=== PATIENT | male | born 1935 | race Caucasian/White ===

== ENCOUNTER 2019-12-07 18:08 | Inpatient (IN) | payer MEDICARE ==
[~2019-12-07] VITALS: Ht 170.2 cm; Wt 79.4 kg
[2019-12-07] MEDS ORDERED: MORPHINE SULFATE 4 MG/ML CPJ (NOT FOR IM USE) IV STA (19:08)
[2019-12-07] MEDS ORDERED: SODIUM CHLORIDE 0.9% 1,000 ML IV ONE (19:08)
[2019-12-07] MEDS ORDERED: ONDANSETRON HCL 4MG/2ML INJ IV STA (19:08)
[2019-12-07 19:29] LABS: CHLORIDE 100 mEq/L (98-107)
[2019-12-07 19:32] LABS: HEMATOCRIT. 34.7 % (42.0-52.0); MEAN CORPUSCULAR HEMOGLOBIN 33.4 pg (28.0-32.0); MEAN CORPUSCULAR VOLUME 96.7 fL (80.0-94.0); PLATELET 111 x1000/uL (130-400); RED BLOOD CELL COUNT 3.59 mill/uL (4.7-6.1); RED CELL DISTRIBUTION WIDTH 15.1 % (11.6-14.6)
[2019-12-07 19:37] LABS: PARTIAL THROMBOPLASTIN TIME 25.4 sec (23.4-31.0); PROTHROMBIN TIME 10.8 sec (9.6-11.0)
[2019-12-07] MEDS ORDERED: LEVETIRACETAM 500MG PREMIX 100 ML IV ONE (20:15)
[2019-12-07 20:21] LABS: PLATELET ESTIMATE DECREASED
[2019-12-07] MEDS ORDERED: NICARDIPINE 50 MG in SODIUM CHLORIDE 0.9% 230 ML IV STA (20:30)
[2019-12-07] MEDS: NICARDIPINE 40MG/200ML PREMIX 200 ML IV SCH (21:31)
[2019-12-07] MEDS ORDERED: DEXT 5%/0.45% NACL 1000ML 1,000 ML IV SCH (22:21)
[2019-12-07] MEDS ORDERED: CLONIDINE 0.1MG TABLET PO PRN (22:30)
[2019-12-07] MEDS ORDERED: DIPHENHYDRAMINE 50MG/ML VIAL IV PRN (22:30)
[2019-12-07] MEDS ORDERED: MAGNESIUM/ALUMINUM HYDROXIDE/SIMETHICONE 30ML UDC PO PRN (22:30)
[2019-12-07] MEDS ORDERED: DOCUSATE SODIUM 100MG CAPSULE PO PRN (22:30)
[2019-12-07] MEDS ORDERED: MORPHINE SULFATE 2 MG/ML CPJ (NOT FOR IM USE) IV PRN (22:30)
[2019-12-07] MEDS ORDERED: GUAIFENESIN 200MG/10ML SUGAR FREE UDC PO PRN (22:30)
[2019-12-07] MEDS ORDERED: HYDRALAZINE 20MG/ML VIAL IV PRN (22:30)
[2019-12-07] MEDS ORDERED: LORAZEPAM 2MG/ML CPJ IV PRN (22:30)
[2019-12-07] MEDS ORDERED: ONDANSETRON HCL 4MG/2ML INJ IV PRN (22:30)
[2019-12-07] MEDS ORDERED: HYDROCODONE/ACETAMINOPHEN 10/325MG TABLET PO PRN (22:30)
[2019-12-07] MEDS ORDERED: ACETAMINOPHEN 325MG TABLET PO PRN (22:30)
[2019-12-07] MEDS ORDERED: IPRATROPIUM/ALBUTEROL 0.5-3(2.5)MG/3ML NEB HHN PRN (22:30)
[2019-12-08] VITALS (69 sets, daily range): BP systolic 62–156; BP diastolic 26–89
[2019-12-08] MEDS: NICARDIPINE 40MG/200ML PREMIX 200 ML IV SCH (03:11)
[2019-12-08] MEDS ORDERED: DEXT 5%/0.45% NACL 1000ML 1,000 ML IV SCH (05:15)
[2019-12-08] MEDS ORDERED: NICARDIPINE 50 MG in SODIUM CHLORIDE 0.9% 250 ML IV PRN (06:00)
[2019-12-08] MEDS ORDERED: LEVETIRACETAM 250 MG in SODIUM CHLORIDE 0.9% 100 ML IV SCH ×2 (06:00→07:00)
[2019-12-08] MEDS ORDERED: NICARDIPINE 50 MG in SODIUM CHLORIDE 0.9% 230 ML IV PRN (06:00)
[2019-12-08] MEDS ORDERED: SODIUM CHLORIDE 0.9% INJ 3ML FLUSH IVF SCH (06:00)
[2019-12-08] MEDS: DEXT 5%/LACTATED RINGERS 1,000 ML IV SCH ×2 (06:15→23:28)
[2019-12-08] MEDS ORDERED: NICARDIPINE 100 MG in SODIUM CHLORIDE 0.9% 60 ML IV PRN (07:00)
[2019-12-08 09:46] LABS: CHLORIDE 103 mEq/L (98-107)
[2019-12-08 09:48] LABS: BASOPHILS % 0.2 % (0.0-2.0); HEMATOCRIT. 26.1 % (42.0-52.0); HEMOGLOBIN. 9.2 g/dL (14.0-18.0); MEAN CORPUSCULAR HEMOGLOBIN 34.1 pg (28.0-32.0); MEAN CORPUSCULAR VOLUME 96.4 fL (80.0-94.0); MONOCYTES % 8.3 % (2.0-8.0); NEUTROPHILS % 77.5 % (40.0-76.0); PLATELET 97 x1000/uL (130-400); RED BLOOD CELL COUNT 2.71 mill/uL (4.7-6.1); RED CELL DISTRIBUTION WIDTH 15.2 % (11.6-14.6)
[2019-12-08 09:59] LABS: CREATINE KINASE 103 IU/L (39-308)
[2019-12-08 10:01] LABS: CREATINE KINASE MB FRACTION 1.9 ng/mL (0.5-3.6)
[2019-12-08] MEDS: LEVETIRACETAM 250 MG in SODIUM CHLORIDE 0.9% 100 ML IV SCH ×2 (10:19→21:26)
[2019-12-08 10:28] LABS: T4 FREE 1.32 ng/dL (0.76-1.46)
[2019-12-08] MEDS: MORPHINE SULFATE 2 MG/ML CPJ (NOT FOR IM USE) IV PRN (11:36)
[2019-12-08 14:52] LABS: BG BASE EXCESS -0.8 mmol/L (-2.0-2.0); BG CARBOXYHEMOGLOBIN 0.3 % (0.5-1.5); BG DEOXYHEMOGLOBIN 6.3 % (0.0-5.0); BG FRACTION INSPIRED OXYGEN 21; BG HCO3 ACT 23.4 mmol/L (22.0-26.0); BG METHEMOGLOBIN 0.2 % (0.0-1.5); BG OXYGEN SATURATION 93.7 % (92.0-98.5); BG OXYHEMOGLOBIN 93.2 % (94.0-97.0); BG PCO2 36.8 mmHg (35.0-45.0); BG PH 7.421 (7.350-7.450); BG SAMPLE SITE RIGHT RADIAL; BG TOTAL HEMOGLOBIN 9.5 g/dL (12.0-18.0); BG VENT MODE ROOM AIR
[2019-12-08] MEDS: NICARDIPINE 100 MG in SODIUM CHLORIDE 0.9% 60 ML IV PRN ×2 (15:22→15:28)
[2019-12-08 17:06] LABS: HEMATOCRIT 27.3 % (42.0-52.0); HEMOGLOBIN 9.8 g/dL (14.0-18.0); MEAN CORPUSCULAR HEMOGLOBIN 35.2 pg (28.0-32.0); MEAN CORPUSCULAR VOLUME 97.7 fL (80.0-94.0); PLATELET 94 x1000/uL (130-400); RED BLOOD CELL COUNT 2.79 mill/uL (4.7-6.1); RED CELL DISTRIBUTION WIDTH 15.2 % (11.6-14.6)
[2019-12-08 17:12] LABS: CHLORIDE 104 mEq/L (98-107)
[2019-12-08 17:22] LABS: CREATINE KINASE 158 IU/L (39-308)
[2019-12-08 17:23] LABS: CREATINE KINASE MB FRACTION 1.7 ng/mL (0.5-3.6)
[2019-12-08 18:29] LABS: CLARITY URINE CLEAR (CLEAR); COLOR URINE YELLOW (YELLOW); KETONES URINE NEGATIVE (NEGATIVE); LEUKOCYTE ESTERASE URINE NEGATIVE (NEGATIVE); NITRITE URINE NEGATIVE (NEGATIVE); OCCULT BLOOD URINE NEGATIVE (NEGATIVE); PROTEIN URINE NEGATIVE (NEGATIVE); SPECIFIC GRAVITY URINE 1.012 (1.005-1.030); UROBILINOGEN URINE 0.2 E.U./dL (0.2-1.0)
[2019-12-08 18:39] LABS: *AMPHETAMINES SCREEN URINE NEGATIVE (NEGATIVE)
[2019-12-08 18:41] LABS: *BARBITURATES SCREEN URINE NEGATIVE (NEGATIVE); *BENZODIAZEPINES SCREEN URINE NEGATIVE (NEGATIVE); *COCAINE SCREEN URINE NEGATIVE (NEGATIVE); METHADONE URINE SCREEN NEGATIVE (NEGATIVE); OPIATES URINE SCREEN PRESUMTIVE POSITIVE (NEGATIVE); PHENCYCLIDINE URINE SCREEN NEGATIVE (NEGATIVE)
[2019-12-08 18:42] LABS: CANNABINOID URINE SCREEN NEGATIVE (NEGATIVE)
[2019-12-08] MEDS ORDERED: IOHEXOL-350 100 ML BOTTLE ONE (21:37)
[2019-12-09] VITALS (89 sets, daily range): BP systolic 86–158; BP diastolic 25–93
[2019-12-09] MEDS: NICARDIPINE 100 MG in SODIUM CHLORIDE 0.9% 60 ML IV PRN ×2 (06:09→22:39)
[2019-12-09 07:26] LABS: HEMATOCRIT 24.8 % (42.0-52.0); HEMOGLOBIN 8.9 g/dL (14.0-18.0); MEAN CORPUSCULAR HEMOGLOBIN 34.5 pg (28.0-32.0); MEAN CORPUSCULAR VOLUME 96.3 fL (80.0-94.0); PLATELET 94 x1000/uL (130-400); RED BLOOD CELL COUNT 2.58 mill/uL (4.7-6.1); RED CELL DISTRIBUTION WIDTH 15.6 % (11.6-14.6)
[2019-12-09 07:33] LABS: CHLORIDE 103 mEq/L (98-107)
[2019-12-09] MEDS: LEVETIRACETAM 250 MG in SODIUM CHLORIDE 0.9% 100 ML IV SCH ×2 (09:16→21:59)
[2019-12-09] MEDS ORDERED: METOPROLOL TARTRATE 100MG TABLET PO SCH (14:30)
[2019-12-09] MEDS ORDERED: ACETAMINOPHEN 650MG SUPP PR PRN (14:30)
[2019-12-09] MEDS ORDERED: ACETAMINOPHEN 325MG TABLET PO PRN (14:30)
[2019-12-09] MEDS ORDERED: HYDROCODONE/ACETAMINOPHEN 5/325MG TABLET PO PRN (14:30)
[2019-12-09] MEDS: MORPHINE SULFATE 2 MG/ML CPJ (NOT FOR IM USE) IV PRN (16:42)
[2019-12-09] MEDS ORDERED: AMLODIPINE 5MG TABLET PO NR (16:45)
[2019-12-09] MEDS ORDERED: METOPROLOL TARTRATE 25MG TABLET PO NR (16:45)
[2019-12-09] MEDS: DEXT 5%/LACTATED RINGERS 1,000 ML IV SCH ×2 (17:07→22:07)
[2019-12-10] VITALS (90 sets, daily range): BP systolic 114–171; BP diastolic 12–110
[2019-12-10 07:32] LABS: BASOPHILS % 0.3 % (0.0-2.0); EOSINOPHILS % 0.6 % (0.0-5.0); HEMATOCRIT. 26.4 % (42.0-52.0); HEMOGLOBIN. 9.5 g/dL (14.0-18.0); LYMPHOCYTES % 10.7 % (20.0-50.0); MEAN CORPUSCULAR HEMOGLOBIN 34.5 pg (28.0-32.0); MEAN CORPUSCULAR VOLUME 95.8 fL (80.0-94.0); MEAN PLATELET VOLUME 8.7 fl (7.4-10.4); MONOCYTES % 7.9 % (2.0-8.0); NEUTROPHILS % 80.5 % (40.0-76.0); PLATELET 94 x1000/uL (130-400); RED BLOOD CELL COUNT 2.75 mill/uL (4.7-6.1); RED CELL DISTRIBUTION WIDTH 15.4 % (11.6-14.6)
[2019-12-10 07:55] LABS: CHLORIDE 105 mEq/L (98-107)
[2019-12-10 08:04] LABS: TOTAL IRON BINDING CAPACITY 340 ug/dL (250-450)
[2019-12-10] MEDS: LEVETIRACETAM 250 MG in SODIUM CHLORIDE 0.9% 100 ML IV SCH ×2 (09:32→21:51)
[2019-12-10] MEDS: AMLODIPINE 5MG TABLET PO SCH ×2 (09:33→21:02)
[2019-12-10] MEDS: METOPROLOL TARTRATE 25MG TABLET PO SCH ×2 (09:40→21:02)
[2019-12-10] MEDS ORDERED: POTASSIUM CHLORIDE 20MEQ TABLET SR PO NR (11:00)
[2019-12-10] MEDS: NICARDIPINE 100 MG in SODIUM CHLORIDE 0.9% 60 ML IV PRN (21:01)
[2019-12-11] VITALS (60 sets, daily range): BP systolic 81–160; BP diastolic 43–122
[2019-12-11 07:39] LABS: HEMATOCRIT 26.3 % (42.0-52.0); HEMOGLOBIN 9.4 g/dL (14.0-18.0); MEAN CORPUSCULAR HEMOGLOBIN 34.5 pg (28.0-32.0); MEAN CORPUSCULAR VOLUME 96.6 fL (80.0-94.0); PLATELET 117 x1000/uL (130-400); RED BLOOD CELL COUNT 2.73 mill/uL (4.7-6.1); RED CELL DISTRIBUTION WIDTH 15.2 % (11.6-14.6)
[2019-12-11] MEDS: METOPROLOL TARTRATE 25MG TABLET PO SCH (08:28)
[2019-12-11] MEDS: AMLODIPINE 5MG TABLET PO SCH ×2 (08:28→20:58)
[2019-12-11] MEDS: LEVETIRACETAM 250 MG in SODIUM CHLORIDE 0.9% 100 ML IV SCH ×2 (08:29→21:00)
[2019-12-11 08:31] LABS: CHLORIDE 107 mEq/L (98-107)
[2019-12-11] MEDS: DEXT 5%/LACTATED RINGERS 1,000 ML IV SCH (08:31)
[2019-12-11] MEDS: NICARDIPINE 100 MG in SODIUM CHLORIDE 0.9% 60 ML IV PRN (10:56)
[2019-12-11] MEDS ORDERED: HYDRALAZINE 20MG/ML VIAL IV PRN (11:30)
[2019-12-11] MEDS ORDERED: IPRATROPIUM/ALBUTEROL 0.5-3(2.5)MG/3ML NEB HHN SCH (12:45)
[2019-12-11 13:08] LABS: BG BASE EXCESS -2.6 mmol/L (-2.0-2.0); BG CARBOXYHEMOGLOBIN 0.3 % (0.5-1.5); BG DEOXYHEMOGLOBIN 12.9 % (0.0-5.0); BG FRACTION INSPIRED OXYGEN 36; BG HCO3 ACT 20.2 mmol/L (22.0-26.0); BG OXYGEN SATURATION 87.1 % (92.0-98.5); BG OXYHEMOGLOBIN 86.8 % (94.0-97.0); BG PCO2 28.1 mmHg (35.0-45.0); BG PH 7.475 (7.350-7.450); BG PO2 52.2 mmHg (75.0-100.0); BG SAMPLE SITE RIGHT RADIAL; BG TOTAL HEMOGLOBIN 9.5 g/dL (12.0-18.0); BG VENT MODE NASAL CANNULA
[2019-12-11] MEDS ORDERED: LACTULOSE 20G/30ML UDC PO PRN (14:15)
[2019-12-11] MEDS ORDERED: METOPROLOL TARTRATE 25MG TABLET PO NR (14:15)
[2019-12-11] MEDS ORDERED: LACTULOSE 20G/30ML UDC PO NR (14:15)
[2019-12-11] MEDS ORDERED: CLONIDINE 0.1MG TABLET PO PRN (14:15)
[2019-12-11] MEDS: LEVOFLOXACIN 500MG PREMIX 100 ML IV SCH (14:16)
[2019-12-11] MEDS ORDERED: FUROSEMIDE 40MG/4ML VIAL IVP NR (16:00)
[2019-12-11 16:19] LABS: BG BASE EXCESS -1.2 mmol/L (-2.0-2.0); BG CARBOXYHEMOGLOBIN 0.3 % (0.5-1.5); BG FRACTION INSPIRED OXYGEN 36; BG HCO3 ACT 21.1 mmol/L (22.0-26.0); BG METHEMOGLOBIN 0.1 % (0.0-1.5); BG OXYHEMOGLOBIN 88.6 % (94.0-97.0); BG PCO2 27.1 mmHg (35.0-45.0); BG PH 7.509 (7.350-7.450); BG PO2 52.7 mmHg (75.0-100.0); BG SAMPLE SITE RIGHT RADIAL; BG TOTAL HEMOGLOBIN 9.7 g/dL (12.0-18.0); BG VENT MODE NASAL CANNULA
[2019-12-11] MEDS: DOCUSATE SODIUM 100MG CAPSULE PO PRN (17:13)
[2019-12-11 17:18] LABS: HEMATOCRIT. 26.7 % (42.0-52.0); HEMOGLOBIN. 9.4 g/dL (14.0-18.0); MEAN CORPUSCULAR HEMOGLOBIN 34.4 pg (28.0-32.0); MEAN CORPUSCULAR VOLUME 97.2 fL (80.0-94.0); MEAN PLATELET VOLUME 9.7 fl (7.4-10.4); PLATELET 136 x1000/uL (130-400); RED BLOOD CELL COUNT 2.74 mill/uL (4.7-6.1); RED CELL DISTRIBUTION WIDTH 15.2 % (11.6-14.6)
[2019-12-11 17:22] LABS: CHLORIDE 106 mEq/L (98-107)
[2019-12-11 17:59] LABS: PLATELET ESTIMATE NORMAL
[2019-12-11] MEDS: METOPROLOL TARTRATE 50MG TABLET PO SCH (20:59)
[2019-12-11] MEDS: IPRATROPIUM/ALBUTEROL 0.5-3(2.5)MG/3ML NEB HHN SCH (22:04)
[2019-12-12] VITALS (71 sets, daily range): BP systolic 100–157; BP diastolic 41–102
[2019-12-12] MEDS: IPRATROPIUM/ALBUTEROL 0.5-3(2.5)MG/3ML NEB HHN SCH ×3 (01:01→20:02)
[2019-12-12] MEDS: HYDRALAZINE 20MG/ML VIAL IV PRN ×2 (05:52→14:04)
[2019-12-12] MEDS: NICARDIPINE 100 MG in SODIUM CHLORIDE 0.9% 60 ML IV PRN (07:39)
[2019-12-12] MEDS: LEVETIRACETAM 250 MG in SODIUM CHLORIDE 0.9% 100 ML IV SCH ×2 (08:23→21:14)
[2019-12-12] MEDS: AMLODIPINE 5MG TABLET PO SCH ×2 (08:23→21:14)
[2019-12-12] MEDS: METOPROLOL TARTRATE 50MG TABLET PO SCH ×2 (08:23→21:14)
[2019-12-12] MEDS: MORPHINE SULFATE 2 MG/ML CPJ (NOT FOR IM USE) IV PRN ×2 (08:24→13:43)
[2019-12-12 09:55] LABS: BG BASE EXCESS -3.1 mmol/L (-2.0-2.0); BG CARBOXYHEMOGLOBIN 0.3 % (0.5-1.5); BG DEOXYHEMOGLOBIN 15.4 % (0.0-5.0); BG FRACTION INSPIRED OXYGEN 36; BG HCO3 ACT 18.3 mmol/L (22.0-26.0); BG METHEMOGLOBIN 0.3 % (0.0-1.5); BG OXYGEN SATURATION 84.5 % (92.0-98.5); BG PCO2 22.2 mmHg (35.0-45.0); BG PH 7.534 (7.350-7.450); BG PO2 45.8 mmHg (75.0-100.0); BG SAMPLE SITE RIGHT BRACHIAL; BG TOTAL HEMOGLOBIN 9.7 g/dL (12.0-18.0); BG VENT MODE NASAL CANNULA
[2019-12-12] MEDS: LEVOFLOXACIN 500MG PREMIX 100 ML IV SCH (13:43)
[2019-12-12] MEDS ORDERED: FUROSEMIDE 40MG/4ML VIAL IVP SCH (13:45)
[2019-12-12] MEDS ORDERED: METHYLPREDNISOLONE SOD SUCC 40 MG/ML VIAL IV NR (14:12)
[2019-12-12] MEDS ORDERED: DIGOXIN 500MCG/2ML AMP IV NR (16:00)
[2019-12-12 16:04] LABS: BASOPHILS % 0.2 % (0.0-2.0); EOSINOPHILS % 0.6 % (0.0-5.0); HEMATOCRIT. 26.2 % (42.0-52.0); HEMOGLOBIN. 9.3 g/dL (14.0-18.0); LYMPHOCYTES % 9.2 % (20.0-50.0); MEAN CORPUSCULAR HEMOGLOBIN 34.4 pg (28.0-32.0); MEAN CORPUSCULAR VOLUME 96.6 fL (80.0-94.0); MEAN PLATELET VOLUME 8.9 fl (7.4-10.4); MONOCYTES % 6.6 % (2.0-8.0); NEUTROPHILS % 83.4 % (40.0-76.0); PLATELET 127 x1000/uL (130-400); RED BLOOD CELL COUNT 2.71 mill/uL (4.7-6.1); RED CELL DISTRIBUTION WIDTH 15.4 % (11.6-14.6)
[2019-12-12 16:17] LABS: CHLORIDE 107 mEq/L (98-107)
[2019-12-12] MEDS: PIPERACILLIN/TAZOBACTAM 3.375 G in DEXT 5% WATER 100 ML IV SCH (21:14)
[2019-12-12] MEDS ORDERED: VANCOMYCIN 1250MG in DEXTROSE 5% WATER 250ML IV SCH (22:00)
[2019-12-12] MEDS ORDERED: PIPERACILLIN/TAZOBACTAM 3.375 G/VIAL IV SCH (22:00)
[2019-12-13] VITALS (100 sets, daily range): BP systolic 95–154; BP diastolic 45–98
[2019-12-13] MEDS: IPRATROPIUM/ALBUTEROL 0.5-3(2.5)MG/3ML NEB HHN SCH ×4 (01:36→21:06)
[2019-12-13] MEDS: DOCUSATE SODIUM 100MG CAPSULE PO PRN (02:32)
[2019-12-13] MEDS: PIPERACILLIN/TAZOBACTAM 3.375 G in DEXT 5% WATER 100 ML IV SCH ×3 (04:10→20:24)
[2019-12-13] MEDS: HYDRALAZINE 20MG/ML VIAL IV PRN ×2 (04:11→23:02)
[2019-12-13] MEDS: NICARDIPINE 100 MG in SODIUM CHLORIDE 0.9% 60 ML IV PRN (05:08)
[2019-12-13] MEDS: METOPROLOL TARTRATE 50MG TABLET PO SCH ×3 (08:55→22:13)
[2019-12-13] MEDS: AMLODIPINE 5MG TABLET PO SCH ×2 (08:55→21:13)
[2019-12-13] MEDS: LEVETIRACETAM 250 MG in SODIUM CHLORIDE 0.9% 100 ML IV SCH ×2 (08:55→21:13)
[2019-12-13] MEDS ORDERED: PIPERACILLIN/TAZOBACTAM 3.375 G in DEXT 5% WATER 100 ML IV SCH (12:00)
[2019-12-13] MEDS: VANCOMYCIN 750 MG PREMIX 150 ML IV SCH ×2 (12:03→22:13)
[2019-12-13] MEDS ORDERED: BISACODYL 10MG SUPP PR NR (15:15)
[2019-12-14] VITALS (88 sets, daily range): BP systolic 96–157; BP diastolic 42–96
[2019-12-14] MEDS: IPRATROPIUM/ALBUTEROL 0.5-3(2.5)MG/3ML NEB HHN SCH ×3 (01:23→14:19)
[2019-12-14] MEDS: PIPERACILLIN/TAZOBACTAM 3.375 G in DEXT 5% WATER 100 ML IV SCH ×3 (02:41→14:47)
[2019-12-14] MEDS: MORPHINE SULFATE 2 MG/ML CPJ (NOT FOR IM USE) IV PRN (02:43)
[2019-12-14] MEDS: METOPROLOL TARTRATE 50MG TABLET PO SCH ×2 (05:36→14:48)
[2019-12-14 06:59] LABS: HEMATOCRIT. 25.7 % (42.0-52.0); HEMOGLOBIN. 9.1 g/dL (14.0-18.0); MEAN CORPUSCULAR HEMOGLOBIN 34.3 pg (28.0-32.0); MEAN CORPUSCULAR VOLUME 97.4 fL (80.0-94.0); MEAN PLATELET VOLUME 8.4 fl (7.4-10.4); PLATELET 138 x1000/uL (130-400); RED BLOOD CELL COUNT 2.64 mill/uL (4.7-6.1); RED CELL DISTRIBUTION WIDTH 15.1 % (11.6-14.6)
[2019-12-14 07:59] LABS: CHLORIDE 102 mEq/L (98-107)
[2019-12-14] MEDS: AMLODIPINE 5MG TABLET PO SCH (08:33)
[2019-12-14 09:08] LABS: BG BASE EXCESS -0.5 mmol/L (-2.0-2.0); BG CARBOXYHEMOGLOBIN 0.4 % (0.5-1.5); BG DEOXYHEMOGLOBIN 7.6 % (0.0-5.0); BG FRACTION INSPIRED OXYGEN 21; BG HCO3 ACT 21.4 mmol/L (22.0-26.0); BG METHEMOGLOBIN 0.3 % (0.0-1.5); BG OXYGEN SATURATION 92.3 % (92.0-98.5); BG OXYHEMOGLOBIN 91.7 % (94.0-97.0); BG PCO2 26.8 mmHg (35.0-45.0); BG PO2 63.5 mmHg (75.0-100.0); BG SAMPLE SITE RIGHT RADIAL; BG TOTAL HEMOGLOBIN 10.9 g/dL (12.0-18.0); BG VENT MODE ROOM AIR
[2019-12-14] MEDS: LEVETIRACETAM 250 MG in SODIUM CHLORIDE 0.9% 100 ML IV SCH (09:08)
[2019-12-14] MEDS: VANCOMYCIN 750 MG PREMIX 150 ML IV SCH (09:50)
[2019-12-14 11:13] LABS: PLATELET ESTIMATE NORMAL
[2019-12-14] MEDS ORDERED: CLONIDINE 0.1MG TABLET PO NR (12:45)
[2019-12-14] MEDS ORDERED: KEPP250 MT (13:45)
[2019-12-14] MEDS ORDERED: METO-539 PO (13:45)
[2019-12-14] MEDS ORDERED: HYDR-4001 MT (13:45)
[2019-12-14] MEDS ORDERED: LEVO500T2 PO (13:45)
[2019-12-14] MEDS ORDERED: AMLO5TAB4 PO (13:45)
[2019-12-14] MEDS ORDERED: ALBU90AE INH (13:45)
[2019-12-14] MEDS ORDERED: HYDR-4135 PO (13:45)
[2019-12-14] MEDS ORDERED: HYDRALAZINE HCL 50MG TABLET PO SCH ×2 (14:00→21:00)
[2019-12-14] MEDS: HYDRALAZINE 20MG/ML VIAL IV PRN (18:06)
== END 2019-12-14 18:30 | disposition home health service (06) | DRG 85 ==
LOC: ER 18:08 → EDBEDREQ 20:05 → 5EST 23:04 → EDBEDREQTM 23:07 → EDBEDREQ 23:07 → ENRESERV 12-08 04:13
PROVIDERS: ADMIT Internal Medicine; ATTEND Internal Medicine
DX: S06.6X0A Traumatic subarachnoid hemorrhage without loss of consciousness, initial encounter (principal); J96.01 Acute respiratory failure with hypoxia; J18.9 Pneumonia, unspecified organism; S22.061A Stable burst fracture of T7-T8 vertebra, initial encounter for closed fracture; R65.10 Systemic inflammatory response syndrome (SIRS) of non-infectious origin without acute organ dysfunction; E87.1 Hypo-osmolality and hyponatremia; I16.1 Hypertensive emergency; I47.1 Supraventricular tachycardia; G93.40 Encephalopathy, unspecified; S06.5X0A Traumatic subdural hemorrhage without loss of consciousness, initial encounter; D64.9 Anemia, unspecified; I10 Essential (primary) hypertension; E05.90 Thyrotoxicosis, unspecified without thyrotoxic crisis or storm; E03.9 Hypothyroidism, unspecified; D69.6 Thrombocytopenia, unspecified; M25.78 Osteophyte, vertebrae; R73.9 Hyperglycemia, unspecified; Z20.828 Contact with and (suspected) exposure to other viral communicable diseases; W11.XXXA Fall on and from ladder, initial encounter; I48.0 Paroxysmal atrial fibrillation; M16.0 Bilateral primary osteoarthritis of hip; M47.9 Spondylosis, unspecified; M48.02 Spinal stenosis, cervical region; Y93.89 Activity, other specified; Y92.89 Other specified places as the place of occurrence of the external cause; Y99.8 Other external cause status; Z79.899 Other long term (current) drug therapy; Z87.891 Personal history of nicotine dependence
CPT/HCPCS: 36415; 36600; 71045; 71111; 71250; 71275; 72070; 72100; 72128; 72131; 72146; 72192; 73502; 74018; 80048; 80053; 80061; 80202; 80305; 81003; 82140; 82375; 82550; 82553; 82805; 83036; 83540; 83550; 83880; 84145; 84439; 84443; 84484; 85025; 85027; 85379; 86850; 86900; 93005; 93306; 93970; 97116; 97162; 97166; 97530; 97760; 99291; J0360; J1160; J1940; J1953; J1956; J2270; J2405; J2543; J2920; J3370; J3490; J7030; J7050; J7060; J7121; Q9967; U0003-CS